=== PATIENT | male | born 1970 ===

== ENCOUNTER 2019-11-02 18:29 | Emergency (ER) | payer SELFPAY ==
--- NOTE | 2019-11-02 18:43 | RAD ---
RADIOGRAPH CHEST 1 VIEW: DATE: 11/02/2019 HISTORY: 49-year-old male status post acute chest trauma FINDINGS: There are no airspace densities, pulmonary edema, pneumothorax, or cardiomegaly. The lateral costophr enic angles are sharp. IMPRESSION: No acute cardiopulmonary findings.
== END 2019-11-02 19:58 | disposition home or self-care (01) ==
LOC: ERS 18:29
DX: S20.219A Contusion of unspecified front wall of thorax, initial encounter (principal); V03.90XA Pedestrian on foot injured in collision with car, pick-up truck or van, unspecified whether traffic or nontraffic accident, initial encounter; Y92.481 Parking lot as the place of occurrence of the external cause
CPT/HCPCS: 71045; 93005; G0390